=== PATIENT | female | born 1990 | race Two or more races ===

== ENCOUNTER 2019-01-09 19:50 | Emergency (ER) | payer OTHER ==
[2019-01-09 19:56] VITALS: BP 120/63; PULSE 74; TEMP 98; BMI 21.2
[2019-01-09] MEDS ORDERED: BACITRACIN 15 GM TUBE TOPICAL OINTMENT TP ONE (21:05)
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
== END 2019-01-09 22:23 | disposition home or self-care (01) ==
LOC: JERFT 19:50
PROC: 2W2FX4Z Dressing of Left Hand using Bandage (ICD-10-PCS; principal; 2019-01-09)
DX: T23.062A Burn of unspecified degree of back of left hand, initial encounter (principal); X10.1XXA Contact with hot food, initial encounter; Y93.89 Activity, other specified; Y92.010 Kitchen of single-family (private) house as the place of occurrence of the external cause; Y99.8 Other external cause status
CPT/HCPCS: 16020; 99281-25